=== PATIENT | female | born 1960 | race Caucasian/White ===

== ENCOUNTER → 2016-10-25 | Outpatient (CLI) | payer OTHER ==
[~2016-10-25] VITALS: Ht 170.2 cm; Wt 119.3 kg
[~2016-10-25] MED LIST: ALDACTONE25 MG PO; ALLEGRA ALLERG180 MG PO; FLONASE 0.05%50 MCG NASAL; HYDROCHLOROTH12.5 M1 PO; KETOPROFEN50 MG PO; MEDROXYPROGESTE10 MG PO; NORVASC5 MG PO; OXYBUTYNIN 5 MG5 M2 PO; PAXIL10 MG PO; SINGULAIR 10 MG10 M1 PO; XANAX 0.5 MG0.5 MG PO
--- NOTE | ~2016-10-25 | HPC ---
[facility] [place] [address] PAIN MANAGEMENT CONSULTATION Name: DEBRA TAY [id number] Admission: 10/25/16 Attend Phys: Justin Wilkinson DO Discharge: Date of : 62 Report #: [id number] THIS REPORT FOR: //name// CC: Mauro Wilkinson The patient is a 56-year-old female. She was prior seen in the pain clinic nearly 6 months ago, May 112016. She had a single epidural injection at L3-L4 with 95% relief of the pain for 4-1/2 months, pain is beginning to recur. She notes pain is in the right leg, it has been there for about a month. radiating into the gluteal area, into the groin and started to radiate little bit in the left side as well. She rates the pain as 7-8 on a 0-10 visual analog scale, exacerbated with sitting or standing. She describes sharp, aching, tingling sensation. PHYSICAL EXAMINATION: Shows a 56-year-old female, BMI is 41.2 kilograms per meter squared. Vital signs are stable. Rises from chair using armrest. Modestly antalgic gait. She does have pain primarily in the right L4 distribution. It is in the lateral thigh, does have some pain going into the groin which is unique. Primarily, she has a weakness in the thigh, weakness in lower extremity extension, pain radiating around the lateral thigh to the anterior chavez. Physical examination does show weakness as noted above. Positive straight leg raise on the right, modestly so on the left. We reviewed MRI findings from 05/08/2016. She has multilevel lumbar spondylosis at L2-L3 through L5-S1. 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 We will ask for authorization for lumbar epidural injection under fluoroscopy at L4-L5. This for right L4 radicular symptoms. The patient has failed conservative therapy including physical activity stretch. She has had good relief with prior injection as noted above. She is using ketoprofen (NSAID). <ELECTRONICALLY SIGNED> By: Justin Wilkinson DO 10/29/16 1427 [id number] Justin Wilkinson DO /nt
[2016-10-25 09:30] VITALS: BP 137/78
== END | disposition home or self-care (01) ==
LOC: PAIN 09:09
DX: M47.816 Spondylosis without myelopathy or radiculopathy, lumbar region (principal); M48.06 Spinal stenosis, lumbar region; Z68.41 Body mass index [BMI] 40.0-44.9, adult

== ENCOUNTER → 2016-11-02 | Outpatient (CLI) | payer OTHER ==
[~2016-11-02] VITALS: Ht 167.6 cm; Wt 120.0 kg
[~2016-11-02] MED LIST changes: +IBUPROFEN 200200 M1 PO
--- NOTE | ~2016-11-02 | P ---
[facility] [place] [address] PROCEDURE REPORT Name: DEBRA TAY [facility] [id number] Admission: 11/02/16 Attend Phys: Justin Wilkinson DO Discharge: Date of : 62 Report #: [id number] THIS REPORT FOR: //name// CC: Mauro Wilkinson DATE OF SERVICE: 11/03/2016. HISTORY OF PRESENT ILLNESS: The patient is a very pleasant 56-year-old female seen in consultation 10/25/2016. She has prior diagnosed with symptomatic lumbar radiculopathy. We sought authorization for epidural injection under fluoroscopy today. She presents to pain clinic today for this injection. She notes ongoing pain remains problematic, VAS score is 7/10 low back, bilateral legs. ASSESSMENT: Symptomatic lumbar radiculopathy. PROCEDURE: Lumbar epidural injection under fluoroscopy. PROCEDURE NOTE: After both written and informed consent to include risk of spinal cord damage, increased pain, weakness and dural puncture, the patient was taken to the fluoroscopy suite, placed in the prone position. After sterile prep and drape, a skin wheal with lidocaine was raised. A 22-gauge epidural Tuohy needle was inserted in the midline at L4-L5 with good loss to resistance. Negative aspiration for cerebrospinal fluid or blood was noted. Then 1 mL of Omnipaque under biplanar fluoroscopy showed good spread within the epidural space. This was followed with 80 mg of triamcinolone plus 1 mL of 1.5% preservative-free Xylocaine, 0.5 mL Xylocaine was then injected to flush the needle; it was removed. The patient was monitored for an appropriate period of time and discharged in good and stable condition. The patient was discharged in good and stable condition, told to follow up in 3 weeks to evaluate efficacy of intervention. By: [id number] 1414 Justin Wilkinson DO /nt
[2016-11-02 14:25] VITALS: BP 134/77
== END | disposition home or self-care (01) ==
LOC: PAIN 06-07 13:29
DX: M54.16 Radiculopathy, lumbar region (principal); Z88.8 Allergy status to other drugs, medicaments and biological substances; Z79.899 Other long term (current) drug therapy